=== PATIENT | female | born 1980 | race American Indian/Alaskan Native ===

== ENCOUNTER 2017-05-02 09:55 | Outpatient (CLI) | payer MEDICAID ==
--- NOTE | 2017-05-02 11:35 | XRay Report ---
Right knee 3 views. History: Knee pain. Findings: There is mild narrowing of the medial joint space. No fractures or other acute findings are seen. The soft tissue structures are normal. Bony mineralization is normal. Impression: Mild osteoarthritis.
--- NOTE | 2017-05-02 13:51 | XRay Report ---
AP lateral of the cervical spine. History: Cervical radiculopathy. Findings: There is reversal of the lordotic curvature. There no fractures or subluxations. There is no prevertebral soft tissue edema. The odontoid is intact. The posterior elements appear normal. Impression: No acute findings. Reversal of lordotic curvature may be due to muscle spasm.
== END 2017-05-02 09:56 | disposition home or self-care (01) ==
LOC: XRAY 09:55
PROVIDERS: ATTEND Physical Medicine & Rehabilitation
DX: M17.11 Unilateral primary osteoarthritis, right knee (principal); M54.12 Radiculopathy, cervical region
CPT/HCPCS: 72040

== ENCOUNTER 2018-09-04 12:08 | Emergency (ER) | payer OTHER, MEDICAID ==
[2018-09-04 12:42] VITALS: BP 150/87
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
--- NOTE | 2018-09-04 13:58 | XRay Report ---
RIGHT FOREARM: History: Anterior forearm pain. AP and lateral views of the forearm demonstrate normal mineralization and contours for this patient's age. No destructive changes are noted and the adjacent soft tissues are normal. IMPRESSION: Normal right forearm.
--- NOTE | 2018-09-04 13:59 | XRay Report ---
CERVICAL SPINE, 3 views: History: Posterior neck pain. AP and lateral views of the cervical spine were obtained. There is anatomic alignment, and the disc spaces are well maintained. There is no evidence of fracture or subluxation. There is loss of the normal cervical lordotic curve suggestive of muscle spasm. The prevertebral soft tissues are within normal limits. IMPRESSION: Loss of cervical lordosis suggesting muscle spasm vs. variation in patient positioning. Clinical correlation is advised. Otherwise negative cervical spine.
--- NOTE | 2018-09-04 14:03 | XRay Report ---
LUMBOSACRAL SPINE, 3 VIEWS: History: Low back pain Findings: There is 1.4 cm anterolisthesis of L5 with respect to the sacrum consistent with grade 2 or 3 anterolisthesis. Chronic appearing bilateral L5 pars defects are suspected. These findings are unchanged since 12/09/12. The remaining lumbar vertebra are normal in height and alignment. Moderate degenerative disc disease is noted at L5-S1. The remaining disc spaces are within normal limits. There is mild diffuse facet arthropathy. The SI joints and sacrum are unremarkable. Impression: Chronic L5 pars defects with grade 2 or grade 3 anterolisthesis of L5 with respect to the sacrum. Mild diffuse facet arthropathy. No acute injury is appreciated.
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
== END 2018-09-04 15:24 | disposition home or self-care (01) ==
LOC: ED 12:08
DX: S16.1XXA Strain of muscle, fascia and tendon at neck level, initial encounter (principal); S39.012A Strain of muscle, fascia and tendon of lower back, initial encounter; S56.911A Strain of unspecified muscles, fascia and tendons at forearm level, right arm, initial encounter; I10 Essential (primary) hypertension; K21.9 Gastro-esophageal reflux disease without esophagitis; F17.200 Nicotine dependence, unspecified, uncomplicated; F12.90 Cannabis use, unspecified, uncomplicated; Z88.0 Allergy status to penicillin; V89.2XXA Person injured in unspecified motor-vehicle accident, traffic, initial encounter; Y93.89 Activity, other specified; Y92.488 Other paved roadways as the place of occurrence of the external cause; Y99.8 Other external cause status
CPT/HCPCS: 72040; 72100; 99283